=== PATIENT | male | born 1960 | race Caucasian/White ===

== ENCOUNTER 2018-03-12 08:02 | Emergency (ER) | payer MEDICARE, OTHER, MEDICAID | END 2018-03-12 10:57 | disposition home or self-care (01) | LOC: M ED 08:02 | DX: S80.02XA Contusion of left knee, initial encounter (principal); M25.462 Effusion, left knee; W01.0XXA Fall on same level from slipping, tripping and stumbling without subsequent striking against object, initial encounter; Y92.099 Unspecified place in other non-institutional residence as the place of occurrence of the external cause; Y93.9 Activity, unspecified; Y99.9 Unspecified external cause status; E11.9 Type 2 diabetes mellitus without complications; M76.892 Other specified enthesopathies of left lower limb, excluding foot | CPT/HCPCS: 73564 ==